=== PATIENT | male | born 2000 | race Two or more races ===

== ENCOUNTER 2018-05-17 05:54 | Emergency (ER) | payer OTHER ==
[~2018-05-17] VITALS: Ht 188 cm; Wt 81.6 kg
[2018-05-17 06:21] VITALS: Ht 188 cm; Wt 81.6 kg
[2018-05-17 08:28] VITALS: BP 122/63
== END 2018-05-17 08:29 ==
LOC: ED 05:54
DX: S01.81XA Laceration without foreign body of other part of head, initial encounter (principal); S09.8XXA Other specified injuries of head, initial encounter; W18.30XA Fall on same level, unspecified, initial encounter; Y93.89 Activity, other specified; Y92.89 Other specified places as the place of occurrence of the external cause; Y99.8 Other external cause status
CPT/HCPCS: J2001